=== PATIENT | male | born 1965 | race Caucasian/White ===

== ENCOUNTER 2018-10-07 12:06 | Observation (INO) ==
[2018-10-07] MEDS ORDERED: KEFZOL 2 GM/D5W 2 GM/50 ML IVPB ONE (12:43)
[2018-10-07] MEDS ORDERED: LR 1,000 ML ONE (12:43)
[2018-10-07] MEDS ORDERED: NORCO-10 ONE (14:38)
[2018-10-07] MEDS ORDERED: VALIUM ONE (14:38)
[2018-10-07] MEDS ORDERED: VERSED ONE (15:05)
[2018-10-07] MEDS ORDERED: XYLOCAINE 1% ONE (15:05)
[2018-10-07] MEDS ORDERED: QUELICIN (DOSE) ONE (15:05)
[2018-10-07] MEDS ORDERED: MARCAINE 0.5% PF ONE (15:05)
[2018-10-07] MEDS ORDERED: XYLOCAINE-MPF 2% ONE (15:05)
[2018-10-07] MEDS ORDERED: ROBINUL ONE (15:05)
[2018-10-07] MEDS ORDERED: FENTANYL ONE (15:06)
[2018-10-07] MEDS ORDERED: STERILE WATER INJ. ONE (15:06)
[2018-10-07] MEDS ORDERED: NORCURON ONE (15:06)
[2018-10-07] MEDS ORDERED: DIPRIVAN 1% ONE ×2 (15:07)
[2018-10-07] MEDS ORDERED: PRECEDEX ONE (15:13)
[2018-10-07] MEDS ORDERED: ZOFRAN ONE (15:33)
[2018-10-07] MEDS ORDERED: ZOFRAN IV PRN (17:32)
[2018-10-07] MEDS: MORPHINE IV PRN ×2 (18:36→21:56)
[2018-10-07 18:49] LABS: HEMOGLOBIN A1C 4.7 % (4.8-6.0)
--- NOTE | 2018-10-07 20:53 | OPERATIVE NOTE ---
PROCEDURE DATE: 10/07/2018 POSTOPERATIVE DIAGNOSES: 1. Right distal fibula fracture. 2. Right ankle dislocation. 3. Right deltoid tear. 4. Right posterior malleolar fracture. POSTOPERATIVE DIAGNOSES: 1. Right distal fibula fracture. 2. Right ankle dislocation. 3. Right deltoid tear. 4. Right posterior malleolar fracture. 5. Right ankle loose body. PROCEDURES: 1. Right open reduction and internal fixation of distal fibula. 2. Right open reduction and internal fixation of syndesmosis. 3. Right deltoid repair. 4. Right ankle arthrotomy with debridement of loose body. SURGEON: Lane Coles MD. POWER TRANSFORMER ASSEMBLER: EZE Costa, who was an integral part of the case, helping with all aspects of the case, helping to increase our operating room efficiency greatly. TOURNIQUET TIME: About an hour and a half. IMPLANTS: 1. Medline distal fibular locking plate and screws. 2. Biomet JuggerKnot suture anchors. DISPOSITION: To PACU, hemodynamically stable. INDICATION FOR PROCEDURE: Mr. Travis is a 53-year-old male who presented to the emergency department on 10/05/2018 after a fall. He was diagnosed with an ankle fracture, splinted and sent to clinic. He presented to clinic today with ankle dislocation, so discussed with him urgent surgical fixation. He expressed understanding and wished to proceed. DESCRIPTION OF PROCEDURE: Mr. Travis was identified in the preoperative holding area. Right ankle was marked as correct surgical site. He was then wheeled to the operating room and placed supine on the operating table. All bony prominences were well padded. He was induced under general anesthesia. LMA was placed. No thigh tourniquet was used. The right lower extremity was then prepped with chlorhexidine, gluconate scrub, and then ChloraPrep, and draped in a normal sterile fashion. Surgical pause was performed. We identified the correct patient, the correct side, and the correct procedure. Preoperative antibiotics were given. Esmarch was used to exsanguinate the right lower extremity, and Esmarch was used as the tourniquet at the level of the midcalf. I started with a lateral incision over the distal fibula. Dissection was carried down. There was a long oblique fracture of the fibula, and there was a lot of muscle that was interposed in there which looked to be some of the FHL muscle belly. Looking at fluoroscopic imaging, it looked like there may have been some loose body in the joint because the talus was a little bit tilted, so I ended up taking down the AITFL off the anterior aspect of the fibula, and was able to externally rotate the fibula and look inside the joint, and there were some loose bodies there. There was a lot of comminution at the distal fibula at the syndesmosis, and you could see the posterior malleolar fracture fragment as well which was really small, but the posterior tibiofibular ligament was attached to that piece. I then used a rongeur after we made our arthrotomy, and was able to debride out those loose bodies out of the ankle joint. After that, the ankle joint itself looked pretty good as much as I could see. I then debrided a little bit of the comminution of loose bone that was there, and then I was able to reduce the fibula really well. After that, I was able to get a bony reduction clamp on it. I did use a large tenaculum to help reduce my medial clear space widening at the fibula right where we needed it. I then used a lag screw proximally, where the larger fracture fragments were, and that lagged everything in together very nicely. I was then able to get a distal fibular locking plate on that was fairly long. I used nonlocking screws proximally and locking screws distally to hold everything together. There was some syndesmotic instability that was there, and so I used a hand reduction of the syndesmosis. I was looking right at the reduction as well on the anterior aspect of the syndesmosis to make sure my position was perfect, and then I placed two 4-0 screws across the fibula and into the tibia. We drilled all 4 cortices. That stabilized the syndesmosis and I performed ORIF of the tibia-fibula joint. After this, the ankle was fairly stable. I went over to the medial side and made an incision there. The deltoid was completely avulsed off the medial malleolus. There were some bony spurs off of the medial malleolus. I took those off with a rongeur. I then put 2 JuggerKnot suture anchors in to repair the deltoid down, and then reinforced that with 0 Vicryls. After this, the ankle was very stable. Final images were taken which showed we had a good ankle mortise view and good position of all our hardware. On the lateral view, we saw the perfect dome of the talus. The fibula looked to be in really good position there. I then repaired the anterior-inferior tibiofibular ligament with 0 Vicryl. I then used 0 Vicryl to cover the deep layer over the plate and 0 Vicryl for the deep layer on the medial wound, then 2-0 Vicryl on the subcutaneous tissue, and nylon on the skin. Adaptic, 4x4s, ABD, Sof-Rol, and posterior splint were applied. Tourniquet was let down. He had good capillary refill return to his toes. He was then awoken from general anesthesia, moved to his own bed, and taken to PACU in stable condition. Postoperatively, he will be nonweightbearing on the right lower extremity. We will admit him to Observation overnight, and more likely be able to discharge him in the morning. cc: Lane Coles MD
[2018-10-07] MEDS: KEFZOL 1 GM/D5W 1 GM/50 ML IVPB IV SCH (20:54)
[2018-10-07] MEDS: OXY IR PO PRN ×2 (20:54→23:32)
[2018-10-08] MEDS: MORPHINE IV PRN ×8 (00:27→17:08)
[2018-10-08] MEDS: OXY IR PO PRN ×6 (02:17→17:48)
[2018-10-08] MEDS: LOVENOX SUBQ SCH ×2 (04:51→05:56)
[2018-10-08] MEDS: KEFZOL 1 GM/D5W 1 GM/50 ML IVPB IV SCH ×2 (04:51→12:37)
[2018-10-08] MEDS ORDERED: PRILOSEC PO SCH (07:00)
[2018-10-08] MEDS ORDERED: SYNTHROID PO SCH (07:00)
[2018-10-08] MEDS: NEURONTIN PO PRN ×2 (08:04→14:26)
[2018-10-08] MEDS: CLEOCIN PO SCH ×2 (08:05→14:26)
[2018-10-08] MEDS ORDERED: CENTRUM SILVER PO SCH (09:00)
[2018-10-08] MEDS ORDERED: TOPAMAX PO SCH (09:00)
[2018-10-08] MEDS ORDERED: VITAMIN C PO SCH (09:00)
[2018-10-08 14:30] VITALS: BP 128/79
--- NOTE | 2018-10-08 18:22 | PROGRESS NOTE ---
DATE: 10/08/2018 SUBJECTIVE: Mr. Travis is lying in bed. He is doing fairly well overall. Morphine has not been working great for him, but the OxyIR is working pretty good. OBJECTIVE: On right lower extremity exam, his splint is clean, dry, and intact. He is able to move his toes and has good sensation to light touch to the toes and good capillary refill of the toes. ASSESSMENT: Status post open reduction and internal fixation of the ankle. PLAN: Mr. Travis will be discharged home today. He will be nonweightbearing, right lower extremity. He will be sent home with Percocet, and I will see him in a week in clinic. cc: Lane Coles MD
[2018-10-08] MEDS ORDERED: DESYREL PO SCH (21:00)
--- NOTE | 2018-10-09 05:19 | DISCHARGE SUMMARY ---
ADMISSION DATE: 10/07/2018 DISCHARGE DATE: 10/08/2018 PRINCIPAL PROCEDURE: Open reduction internal fixation, right ankle. DISPOSITION: Home. DISCHARGE MEDICATIONS: Percocet and aspirin. HOSPITAL COURSE: Mr. Travis is a 53-year-old male who was admitted to the hospital after his open reduction internal fixation of his right ankle. He did well, pain was fairly well controlled. He will be discharged home today. Follow with me in 1 week in clinic. cc: Lane Coles MD
== END 2018-10-08 18:03 | disposition home or self-care (01) ==
LOC: OR 12:06 → 4N 12:06
PROVIDERS: ADMIT Orthopaedic Surgery; ATTEND Orthopaedic Surgery
CPT/HCPCS: 76000; 83036; A9270; J0330; J0690; J1650; J2250; J2270; J2405; J3010; J7120; S0020

== ENCOUNTER 2019-01-01 05:44 | Inpatient (IN) ==
--- NOTE | 2019-01-01 06:25 | PROVIDER DOCUMENTATION ---
HPI-General Adult - General Chief Complaint: Extremity Pain Stated Complaint: POSS BLOOD CLOT IN LEFT LEG Time Seen by Provider: 01/01/19 06:03 Source: patient Allergies/Adverse Reactions: Patient Allergies Allergy/AdvReac Type Severity Reaction Status Date / Time naproxen Allergy Severe ANAPHYLAXIS Verified 01/01/19 05:55 ketorolac [From Toradol] Allergy HIVES Verified 01/01/19 05:55 meperidine [From Demerol] Allergy HIVES Verified 01/01/19 05:55 Home Medications: Home Medication List Medication Instructions Recorded Confirmed Last Taken Type Gabapentin 300 mg PO DAILY PRN PRN 07/03/18 11/26/18 10/07/18 04:00 History Omeprazole 40 mg PO DAILY 07/03/18 10/07/18 10/07/18 04:00 History Clindamycin [Cleocin] 300 mg PO Q6HR 10/05/18 10/07/18 10/07/18 07:00 History Topiramate 200 mg PO DAILY 10/05/18 10/07/18 10/07/18 04:00 History Trazodone [Desyrel] 50 mg PO QHS 10/05/18 10/07/18 10/06/18 19:30 History Hydrocodone/Acetaminophen [[place] 1 ea PO Q6H PRN PRN #12 tab 10/06/18 10/07/18 10/07/18 04:00 Rx 5-325 Tablet] Ascorbic Acid [Vitamin C] 600 mg PO DAILY 10/07/18 10/07/18 10/07/18 07:00 History Levothyroxine [Synthroid] 100 mcg PO DAILY 10/07/18 11/26/18 10/07/18 04:00 History Multivitamin [Multivitamins] 1 ea PO DAILY 10/07/18 10/07/18 10/07/18 04:00 History Aspirin [Ecotrin] 325 mg PO BID #60 tablet. 10/08/18 Unknown Rx Oxycodone HCl/Acetaminophen 1 ea PO Q4-6H PRN PRN #40 tab 10/08/18 Unknown Rx [Percocet 5-325 mg Tablet] Hydrocodone/APAP 5 mg/325 mg 1 ea PO Q6H PRN PRN #12 tab 11/09/18 Unknown Rx [[place]-5] Hydrocodone/APAP 5 mg/325 mg 1 ea PO Q6H PRN PRN #10 tab 11/26/18 Unknown Rx [[place]-5] Hydrocodone/Acetaminophen [[place] 1 - 2 ea PO Q6-8H PRN PRN #20 tab 12/11/18 Unk nown Rx 5-325 Tablet] - History of Present Illness -Gen Adult Nature of Presenting Problems: A 53 Y/O MALE WITH PRESENTS WITH C/O SWELLING AND PAIN IN HIS LEFT LEG. STARTED YESTERDAY AFTERNOON AND HAS BEEN WORSENING, WAS ABLE TO SLEEP ONLY 3 HOURS DUE TO PAIN. PER PT HAD SOME CENTRAL CHEST PAIN AND SOB YESTERDAY AROUND NOON. WAS IN THE CENTER OF THE CHEST, NOW RESOLVED. PER PT HIS L LEG WAS SWOLLEN 3 TIMES THEN WHAT IT IS NOW LAST NIGHT. PT WAS RECENTLY DX WITH DVT AND IS CURRENTLY ON XARALTO. Review of Systems - Adult - REVIEW OF SYSTEMS - ADULT Constitutional: reports: no symptoms reported Eyes: reports: no symptoms reported Ears, Nose, Mouth & Throat: reports: no symptoms reported Cardiovascular: reports: see HPI Respiratory: reports: see HPI Gastrointestinal: reports: no symptoms reported Genitourinary: reports: no symptoms reported Musculoskeletal: reports: see HPI Integumentary: reports: no symptoms reported Neurological: reports: no symptoms reported Psychiatric: reports: no symptoms reported Endocrine: reports: no symptoms reported Hematologic/Lymphatic: reports: no symptoms reported Allergic/Immunologic: reports: no symptoms reported Past History - Adult - PAST MEDICAL HISTORY-ADULT Review of Records: reports: Medications Reviewed Major Childhood Illnesses: reports: denies history Cardiovascular: reports: HTN Respiratory: reports: denies history, other (but uses a nebulizer for his wheezing) Gastrointestinal: reports: GERD, other (diverticulitis) Obstetrical/Gynecological: reports: denies history Genitourinary: reports: kidney stones Musculoskeletal: reports: arthritis, chronic pain Neurological: reports: denies history Endocrine/Immune: reports: Diabetes (diet controlled), thyroid disorder Other Conditions: reports: denies history - PRIOR SURGERIES/PROCEDURES Surgical/Procedure History: reports: appendectomy, colonoscopy, orthopedic (extremity) (bilat ankle crush injury at age 19, left shoulder Sx), other (cystoscopy) - IMMUNIZATION STATUS Childhood Immunizations: UTD, See Nurse Assessment Flu Vaccine: See Nurse Assessment - FAMILY HISTORY Family History: reviewed, not pertinent Physical Exam-General - PHYSICAL EXAM-ADULT Initial Vital Signs Reviewed: Yes - CONSTITUTIONAL General Appearance: appears well, alert, no apparent distress - EYES Eyes: PERRL/EOMI - HEAD, EARS, NOSE, MOUTH & THROAT HENMT: normocephalic/atraumatic, moist mucous membranes, normal ENT inspection - NECK Neck: full range of motion, supple - RESPIRATORY Respiratory: chest non-tender, lungs clear, normal breath sounds, no respiratory distress - CARDIOVASCULAR Cardiovascular: regular rate, rhythm, no murmur - GASTROINTESTINAL (ABDOMEN) Abdominal Exam: soft - MUSCULOSKELETAL Back Exam: no CVA tenderness Extremity: non-tender, pedal edema (B/L FEET 1=2+ [facility]) Peripheral Pulses: radial (R): 2+, radial (L): 2+ - SKIN Integumentary: normal turgor, warm/dry - NEUROLOGIC Neurologic: grossly normal - PSYCHIATRIC Psych/Mental Status: normal mood/affect, oriented x 3, anxious Progress - PLAN OF CARE/RESULTS Progress/Plan/Lab Results: Vital Signs - 8 hr 01/01/19 05:47 Temperature 97.3 F L Pulse Rate 66 Respiratory Rate 18 Blood Pressure 124/75 O2 Sat by Pulse Oximetry 96 Result Diagrams: 01/01/19 06:11 01/01/19 06:11 - CT/MRI 1 CT Study: Angiogram Impression: Abnormal (bilat PE, also has nodules to RUL) - ULTRASOUND (By Radiology) 1 US Study: Lower Ext (lo) Impression: Abnormal (low flow iliac, no flow to distal) - CONSULTS/PCP/HOSPITALIST Notification #1 *Consult/PCP/Hospitalist*: Summer Time Discussed: 11:01 Consult Disposition: Will see in ED - CHANGE OF SHIFT REPORT (ED Provider) 1 Report Given and Care Transferred to:: DR MCKINNEY Time of Transfer: 07:00 Items Pending: Labs, Ultrasound Results Departure - Departure Date of Disposition Decision: 01/01/19 Time of Disposition Decision: 10:59 DIAGNOSIS: Bilateral pulmonary embolism Disposition: ADMITTED INPATIENT 09 Certified Medical Emergency: Emergent Condition: Fair Referrals and Follow-Ups: Oumar Travis Jr, MD [Primary Care Provider] - - Critical Care Note This patient required my direct & personal management of CC.: No Attestation - Physician/ STEPH Attestation Patient care was provided by Advanced Practice Provider:: No The physician spent face to face time with patient:: Yes Advanced Practice Provider documentation review:: Supervising physician onsite and consulted in the evaluation and care of this patient. The physician did have a face to face encounter with the patient.
[2019-01-01 06:32] LABS: BASO# 0.06 X1000 (0.0-0.2); BASO% 0.9 % (0.0-0.8); EOS# 0.42 X1000 (0.0-0.7); EOS% 6.1 % (0.0-10.0); HEMATOCRIT 45.9 % (42.0-52.0); HEMOGLOBIN 15.1 g/dL (14.0-18.0); IMM GRAN# 0.02 X1000 (0.0-0.04); IMM GRAN% 0.3 % (0.0-0.5); LYMPH# 2.34 X1000 (1.2-3.4); MCH 31.9 PG (27-31); MCHC 32.9 g/dL (33-37); MCV 96.8 FL (81-99); MONO# 0.45 X1000 (0.11-0.59); MONO% 6.5 % (1.7-9.3); MPV 10.1 FL (7.4-10.4); NEUT% 52.2 % (42.2-75.2); PLT 242 X1000 (130-400); RBC 4.74 XMIL (4.7-6.1); RDW 14.8 % (11.5-14.5); WBC 6.89 X1000 (4.8-10.8)
[2019-01-01 06:50] LABS: AGAP 11; ALB/GLOB RATIO 1.1; ALBUMIN 3.5 g/dL (3.5-5.0); ALKALINE PHOSPHATASE 80 U/L (32-122); BUN 14 mg/dL (8-22); CALCIUM 8.3 mg/dL (8.8-10.2); CHLORIDE 106 mmol/L (98-107); CK PROFILE 80 U/L (24-204); COSMO 279; ESTIMATED GFR > 60; GLUCOSE 83 mg/dL (70-104); GOT 24 U/L (10-34); GPT 10 U/L (10-44); POTASSIUM 4.1 mmol/L (3.5-5.1); SODIUM 140 mmol/L (136-145); TCO2 23 mmol/L (25-35); TOTAL BILIRUBIN 0.37 mg/dL (0.20-1.00); TOTAL PROTEIN 6.6 g/dL (6.3-8.3)
[2019-01-01] MEDS ORDERED: MORPHINE IM ONE (08:35)
--- NOTE | 2019-01-01 08:52 | Diag Imaging Result Doc PS360 ---
EXAM: CHEST-1 VIEW 01/01/2019 HISTORY: cp TECHNIQUE: AP portable at 0626 COMMENT: The heart size and primary vascularity are within normal limits. There is mildly increased interstitial markings more so than on the previous study of 04/29/2017. IMPRESSION: Questionable interstitial pulmonary edema. Electronically signed by Rick Orlando 01/01/2019 8:50 AM
[2019-01-01] MEDS ORDERED: MORPHINE IV ONE (09:42)
[2019-01-01] MEDS ORDERED: HEPARIN IV ONE ×2 (10:57→11:15)
[2019-01-01] MEDS ORDERED: HEPARIN IV PRN (10:57)
--- NOTE | 2019-01-01 10:57 | Diag Imaging Result Doc PS360 ---
EXAM: CT ANGIOGRM PULMONARY ARTERIES 01/01/2019 HISTORY: difficulty breathing, left arm swollen TECHNIQUE: This exam was performed using automated exposure control, adjustment of mA or kV according to patient size, and/or use of iterative reconstruction technique. COMMENT: 3-D MIPS were performed. The current examination is compared with the previous study of 10/28/2014. There is an embolus in the right main pulmonary artery and filling defects are also present in the interlobar artery on the right and in posterior lower lobe branches in the left side. The aorta is not distended and there is no evidence of dissection. There is a hiatal hernia. There is pleural thickening or loculated fluid laterally at the junction of the minor and major fissure on the right. This was not present on the previous study. There is a pleural-based noncalcified nodule present posterior laterally in the right upper lobe on image 47 measuring 15 mm in diameter. This was not demonstrated on the previous study. There are number of smaller pleural-based nodules posteriorly in the right upper lobe which were also not demonstrated on the previous study. There are some subpleural blebs particularly in the right apex. There is no evidence of significant adenopathy. There is contrast in the left subclavian and innominate vein (contrast was injected in the left arm) and no evidence of thrombosis is demonstrated. The adrenal glands are not enlarged. No acute abnormalities are demonstrated in the visualized portion of the abdomen. There is a partially calcified exophytic cyst in the upper pole of the right kidney which has not changed since 10/25/2017. IMPRESSION: 1. Pulmonary emboli as described. 2. New right upper lobe pulmonary nodules. The findings were discussed with Luis New MD at 01/01/2019 10:55 AM. Electronically signed by Rick Orlando 01/01/2019 10:55 AM
[2019-01-01] MEDS ORDERED: HEPARIN 25,000 UNITS/D5W 25,000 UNIT/250 ML IV.SOLN IV SCH (11:00)
[2019-01-01 11:51] LABS: INR 1.36; PROTIME 17.8 Seconds (11.0-16.0)
[2019-01-01] MEDS ORDERED: ZOFRAN IV PRN (12:09)
[2019-01-01] MEDS ORDERED: TYLENOL PO PRN (12:09)
[2019-01-01] MEDS: MORPHINE IV PRN ×2 (12:54→17:10)
--- NOTE | 2019-01-01 13:24 | HISTORY AND PHYSICAL ---
CHIEF COMPLAINT: Left leg pain and chest pain. HISTORY OF PRESENT ILLNESS: Mr. Travis is a 53-year-old male who presents to the ER today complaining of left leg pain and chest pain that started about 2 days ago. The patient states that on 12/11 he was diagnosed with a left leg DVT and was started on Xarelto. The patient states he has been taking his Xarelto as ordered. About 2 days ago, his left leg pain has steadily become a lot worse. He also started having excruciating chest pain. The patient states that he had a meniscus surgery on 12/02 and right ankle surgery recently. The patient does have notable edema to the left leg and also right ankle region. The patient denies any nausea or vomiting. He states that he has had no problem with his bowel or bladder. The patient states he has having pain at this time an 8 out of 10 to the left leg and to the chest region when he takes a deep breath. Pulmonary arteriogram in the ER was performed and showed pulmonary emboli in the right main pulmonary artery and filling defects are also present in the interlobar artery on the right and posterior left lower lobe branches on the left side. PAST MEDICAL HISTORY: Bipolar disorder, hypothyroidism, kidney stones, and tobacco dependence. PAST SURGICAL HISTORY: 1. Meniscus surgery on 12/02/2018. 2. ORIF of the right ankle 3. Gastric sleeve surgery done 02/03/2018. 4. Left shoulder surgery in 1986. 5. The patient states he has had multiple cystoscopies for kidney stone removal. FAMILY HISTORY: Mother positive for COPD. Father positive for heart problems and bipolar. Both parents are still living. SOCIAL HISTORY: The patient lives here in [place]. He is disabled. He admits to smoking half a pack of cigarettes per day, and admits to drinking alcohol every other day a small amount. He states that he smokes marijuana 2 times a day every day. ALLERGIES: Naproxen, Toradol and meperidine. MEDICATIONS: 1. Aspirin 325 mg p.o. daily. 2. Gabapentin 300 mg p.o. daily. 3. Levothyroxine 100 mcg p.o. daily. 4. Multivitamin 1 tablet daily. 5. Omeprazole 40 mg p.o. daily. 6. Topiramate 200 mg p.o. daily. 7. Trazodone 50 mg p.o. daily. 8. Ascorbic Acid 1000 mg p.o. daily. 9. Xarelto 15 mg p.o. daily. LABORATORY AND DIAGNOSTICS: White blood cell count 6.89, hemoglobin 15.1, hematocrit 45.9, and platelet count 242,000. PT 17.8, INR 1.36, and PTT 31.0. D-dimer 1.35. Sodium 140, potassium 4.1, chloride 106, carbon dioxide 23, BUN 14, and creatinine 1. GFR greater than 60, glucose 83, calcium 8.3, bilirubin 0.37, AST 24, ALT 10, alkaline phosphatase 80, creatine kinase 80. Troponin less than 0.01. Pulmonary arteriogram done on 01/01/2019 shows pulmonary emboli in the right main pulmonary artery, and filling defects are also present in the anterior lobar artery on the right and in the posterior lower lobe branches on the left side. This shows new right upper lobe pulmonary nodules. Chest x-ray shows interstitial pulmonary edema. REVIEW OF SYSTEMS: A 12 point review of systems was obtained. And all are negative except what is stated above in HPI. PHYSICAL EXAMINATION: VITAL SIGNS: Temperature 97.3, pulse rate 66, respiratory rate 18, blood pressure 113/77, and O2 saturation 96% on room air. GENERAL: This is a well-nourished, well-developed male 53-year-old male in somewhat acute distress complaining of pain to the leg and the chest area. HEENT: Atraumatic and normocephalic. Pupils equal, round, and reactive to light. Mucous membranes are moist. No dentition noted. NECK: Supple. No lymphadenopathy. Trachea is midline. No JVD. CV: Regular rate and rhythm. No murmurs, gallops, or rubs appreciated. S1, S2 noted. RESPIRATORY: Lung sounds are clear with equal chest excursion. Respirations are nonlabored with no accessory muscle usage. GI: Abdomen is soft, nondistended, and nontender. Bowel sounds are present x4. NEUROLOGIC: The patient is awake, alert, and oriented x4. Follows all commands. Cranial nerves intact. MUSCULOSKELETAL: Full distal strength noted. No abnormalities. No deformities. EXTREMITIES: No clubbing or cyanosis. DP and PT pulses are palpable and +2. Left lower leg edema noted. +2 right ankle edema noted. SKIN: Warm and dry. No rashes. A bruise noted to the right ankle. There is a new scar noted to the left knee region and the right angle region. No diaphoresis. IMPRESSION: 1. Pulmonary embolus. 2. Left leg DVT. 3. Bipolar disorder. 4. Thyroid disorder. 5. Tobacco dependence. PLAN: We will admit this patient to the [facility] unit. We will place the patient on surveillance monitor. Place this patient on Lovenox 1mg/kg BID. Start this patient on a regular diet. Give [place] and morphine p.r.n. for pain management. Keep the patient on strict bedrest. Repeat labs and chest x-ray in the morning. Patient seen and examined by me face to face, all the laboratory, vitals signs and images were reviewed, patient presented to the Emergency Department with chest pain, and left leg swelling and severe pain, he was recently diagnosed with DVT in that area and placed on Xarelto, as per the patient he has been doing " hard work on his backyard " and started felling left leg pain and chest pain, CTA showed PE, apparently he has been on Xarelto for a little more than 20 days, I will stop Xarelto and start Lovenox, and likely I will send this patient home with Eliquis, he his bradycardic but as per the patient this is his basal rhythm, I will suggest a follow up with Cardiology as an outpatient, I agree with the QUILL MACHINE OPERATOR's assessment and plan, Joseph Harkins MD. Dictated by EZE Barba for Joseph Pak MD cc: MD Dr. Thaddeus Linn
[2019-01-01] MEDS: NORCO-7.5 PO PRN ×2 (14:46→19:50)
[2019-01-01] MEDS: LOVENOX SUBQ SCH (17:10)
--- NOTE | 2019-01-01 18:02 | Extremity Venous Study ---
PROCEDURE NAME: Venous U/S Left Leg - 01/01/2019 Mr. Travis has edema and pain in the left lower extremity. He has a history of a DVT diagnosed on 12/11/2018. He has been on anticoagulants since that time, and is here for followup. Left lower extremity is imaged. The common femoral, superficial femoral, deep femoral, popliteal, posterior tibial, peroneal, and greater saphenous are imaged. The right common femoral vein is imaged for comparison purposes. There is no flow in the superficial femoral, deep femoral, popliteal, posterior tibial, and peroneal veins. Some clot in the left common femoral vein. There is some flow into the common femoral from the greater saphenous vein. The right common femoral appears normal. INTERPRETATION: Deep venous thrombosis in the common femoral, deep femoral, superficial femoral, popliteal, posterior tibial, and peroneal veins. This has not changed significantly compared to study of 12/11/2018. cc: Karthik Hernadez MD
--- NOTE | 2019-01-01 18:10 | ECHO REPORT ---
ORDER DATE: 01/01/2019 INTERPRETING PHYSICIAN: Kwan Robertson MD This is a patient of the Emergency Room Department. INDICATION: Pulmonary embolus. DESCRIPTION: Left ventricle end diastole: 5.7 cm. Left ventricle end systole: 3.6 cm. Posterior wall: 1.1 cm. Interventricular septum: 1.1 cm. Left atrium: 5.0 cm. SUMMARY OF 2-DIMENSIONAL IMAGIN. Left ventricular function is normal. Ejection fraction is estimated at 63%. The chamber is mildly enlarged. 2. The right ventricle appears to be normal. 3. The aortic valve looks normal. Color flow mapping is unremarkable. The aortic valve is free of calcification. 4. The pulmonic valve looks normal. Color flow mapping is unremarkable. 5. The mitral valve looks normal. Color flow mapping is unremarkable. 6. Pulsed wave Doppler of mitral inflow shows normal E/A ratio. 7. Tissue Doppler of septal and lateral mitral annulus averages 10 cm. 8. There is no diastolic dysfunction. 9. The left atrium appears to be mildly prominent. 10.The tricuspid valve looks normal. Color flow mapping is unremarkable. 11.Pulmonary artery pressure appears to be normal. 12.Optison was injected to optimize visualization of the endocardium. There is really no more to be said about this study with Optison. SUMMARY: In summary, this echocardiographic study appears to be: 1. Grossly within normal range. 2. The left ventricle is normal in function and probably mildly or borderline enlarged. 3. The left atrium may be borderline enlarged. 4. Aortic, mitral, pulmonic, and tricuspid valves appear to be normal. The tricuspid valve was suboptimally visualized. 5. There is no definite indication of pulmonary hypertension. Clinical correlation is recommended. cc: Kwan Robertson MD
[2019-01-01] MEDS ORDERED: DESYREL PO SCH (21:00)
[2019-01-01] MEDS ORDERED: CELEXA PO SCH (21:00)
[2019-01-01] MEDS: TRILEPTAL PO SCH (21:23)
[2019-01-01] MEDS: NICODERM PATCH TD SCH (21:23)
[2019-01-02] MEDS: MORPHINE IV PRN ×2 (00:42→05:44)
[2019-01-02] MEDS: NORCO-7.5 PO PRN ×2 (02:44→08:33)
[2019-01-02] MEDS: LOVENOX SUBQ SCH (06:32)
[2019-01-02 06:35] LABS: BASO# 0.03 X1000 (0.0-0.2); BASO% 0.5 % (0.0-0.8); EOS# 0.33 X1000 (0.0-0.7); EOS% 5.5 % (0.0-10.0); HEMATOCRIT 45.7 % (42.0-52.0); HEMOGLOBIN 15.2 g/dL (14.0-18.0); LYMPH# 1.81 X1000 (1.2-3.4); MCH 32.1 PG (27-31); MCHC 33.3 g/dL (33-37); MCV 96.4 FL (81-99); MONO# 0.43 X1000 (0.11-0.59); MONO% 7.1 % (1.7-9.3); MPV 10.4 FL (7.4-10.4); NEUT# 3.44 X1000 (1.4-6.5); NEUT% 56.9 % (42.2-75.2); PLT 228 X1000 (130-400); RBC 4.74 XMIL (4.7-6.1); RDW 14.7 % (11.5-14.5); WBC 6.04 X1000 (4.8-10.8)
[2019-01-02 06:58] LABS: AGAP 7; BUN 10 mg/dL (8-22); CALCIUM 8.4 mg/dL (8.8-10.2); CHLORIDE 105 mmol/L (98-107); CK PROFILE 61 U/L (24-204); COSMO 280; CREATININE 0.8 mg/dL (0.7-1.2); ESTIMATED GFR > 60; GLUCOSE 87 mg/dL (70-104); MAGNESIUM 2.3 mg/dL (1.5-2.7); POTASSIUM 3.7 mmol/L (3.5-5.1); SODIUM 141 mmol/L (136-145); TCO2 29 mmol/L (25-35)
[2019-01-02] MEDS ORDERED: PRILOSEC PO SCH (07:00)
[2019-01-02] MEDS ORDERED: SYNTHROID PO SCH (07:00)
--- NOTE | 2019-01-02 07:16 | Diag Imaging Result Doc PS360 ---
EXAM: CHEST-PORTABLE 01/02/2019 HISTORY: Pulmonary Embolus TECHNIQUE: AP portable at 0602 COMMENT: The inspiration is suboptimal. Considering the degree of inspiration there has been no significant change since 01/01/2019. IMPRESSION: Stable chest. Electronically signed by Rick Orlando 01/02/2019 7:14 AM
[2019-01-02 08:17] VITALS: BP 132/79
[2019-01-02] MEDS: TRILEPTAL PO SCH (08:33)
[2019-01-02] MEDS: NICODERM PATCH TD SCH (08:34)
[2019-01-02] MEDS ORDERED: THERA M PLUS PO SCH (09:00)
[2019-01-02] MEDS ORDERED: FLOMAX PO SCH (09:00)
[2019-01-02] MEDS ORDERED: TOPAMAX PO SCH (09:00)
[2019-01-02] MEDS ORDERED: NEURONTIN PO SCH (09:00)
[2019-01-02] MEDS ORDERED: ELIQUIS PO SCH (09:00)
[2019-01-02] MEDS ORDERED: VITAMIN C PO SCH (09:00)
--- NOTE | 2019-01-02 15:39 | DISCHARGE SUMMARY ---
ADMISSION DATE: 01/01/2019 DISCHARGE DATE: 01/02/2019 PRIMARY CARE: Dr. Oumar Travis. ADMITTING DIAGNOSES: 1. Pulmonary embolus. 2. Left leg DVT. 3. Bipolar disorder. 4. Thyroid disorder. 5. Tobacco dependence. DISCHARGE DIAGNOSIS: 1. Pulmonary embolus. 2. Left leg DVT. 3. Bipolar disorder. 4. Thyroid disorder. 5. Tobacco dependence. 6. Asymptomatic bradycardia PROCEDURES AND FINDINGS: Echocardiogram performed on 01/01/2019 showed a EF of 63% with the left ventricle being borderline enlarged, the left atrium may also be borderline enlarged. Venous ultrasound of the left leg was performed on 01/01/2019 showed DVT in the common femoral, deep femoral, superficial femoral, popliteal, posterior tibial, and peroneal veins which was unchanged from 12/11/2018. CT angiogram of the pulmonary arteries was performed on 01/01/2019 and showed an embolus in the right main pulmonary artery and filling defects were also present in the anterior labral artery on the right and posterior lower left branches on the left side. It also showed a new right upper lobe pulmonary nodule. Chest x-ray was performed on 01/01/2019 and showed questionable pulmonary edema, and chest x-ray on 01/02/2019 showed a stable chest. HOSPITAL COURSE: Mr. Travis is a 53-year-old male who presents to the ER complaining of left leg pain and chest pain that started 2 days prior. Patient states that on 12/11/2018, he was diagnosed with a left leg DVT and started on Xarelto. He noticed about 2 days prior to being admitted on 01/01/2019, that the pain had steadily become worse in his left leg and he started having some chest pain. CT angiogram of the pulmonary arteries was performed on 01/01/2019 and showed an embolus in the right main pulmonary artery and filling defects were also present in the anterior labral artery on the right and posterior lower left branches on the left side The patient was admitted to the [facility] unit and was started on Lovenox 1mg/kg b.i.d. The patient was treated for his pain with p.r.n. medications. Venous Doppler studies were performed. Echocardiogram was ordered. Repeat labs and chest x-ray obtained. The patient's pain has been improving. The patient is being sent home on Eliquis today and p.r.n. pain medication. DISCHARGE INSTRUCTIONS: The patient is to follow up with Dr. Mark in 2 to 3 weeks for asymptomatic bradycardia, Dr. Jewels Nur in 1 to 2 weeks for hematology workup and PE on Xarelto, and Dr. Travis in 1 to 2 weeks. The patient is being discharged with home with self care. LAB DATA: White blood cell count at 6.04, hemoglobin 15.2, hematocrit 45.7, platelet count 228,000, PTT today is 31.6. Sodium 141, potassium 3.7, carbon dioxide 29, BUN 10, creatinine is 0.8, GFR is greater than 60. Calcium is 8.4. Creatine kinase is 61. Troponins are less than 0.01. TSH is 4.18. DISCHARGE MEDICATIONS: Citalopram 40 mg p.o. at bedtime, Desyrel 50 mg p.o. at bedtime, Flomax 0.4 mg p.o. at bedtime, calcium carbonate 600 mg p.o. daily. Flexeril 10 mg p.o. p.r.n. pain. Gabapentin 300 mg p.o. daily. Omeprazole 40 mg p.o. daily. Oxcarbazepine 600 mg p.o. b.i.d., Synthroid 100 mcg p.o. daily. Topiramate 200 mg p.o. daily, vitamin D3 38321 units p.o. daily, Eliquis 10 mg take 2 tablets twice a day for 7 days and 5 mg 1 tablet twice a day, oxycodone 10 mg p.o. q. 6 hours p.r.n. pain. Thera M Plus vitamins 1 tablet p.o. daily. Ascorbic acid 500 mg p.o. daily. DC Diet: Resume diet as tolerated. DC Activity: Resume activity as tolerated. DISPOSITION AND DC INSTRUCTIONS: DC home to self-care. Patient to follow up with Dr. Mark in 2 to 3 weeks, Dr. Jewels Prakash in 1 to 2 weeks, Dr. Oumar Travis in 1 to 2 weeks. Dictated by EZE Barba for Joseph Pak MD cc: MD Eric Linn MD Joel A. Powell, MD [facility]
--- NOTE | 2019-01-05 21:55 | EKG Report ---
Test Performed on : 01/02/2019 06:43:37 AM Test Reason : Bradycardia Blood Pressure : / mmHG Vent. Rate : 054 BPM Atrial Rate : 054 BPM P-R Int : 168 ms QRS Dur : 086 ms QT Int : 444 ms P-R-T Axes : 022 021 039 degrees QTc Int : 421 ms Sinus bradycardia. Otherwise normal ECG When compared with ECG of 11-DEC-2018 09:18, (Unconfirmed) Criteria for Septal infarct are no longer present Confirmed by Graham Conte MD ([id number]) on 01/05/2019 9:56:02 PM
== END 2019-01-02 10:31 | disposition home or self-care (01) | DRG 300 ==
LOC: ED 05:44 → EDIPHOLD 12:35 → 3S 15:16
PROVIDERS: ATTEND Internal Medicine
CPT/HCPCS: 71010; 71045; 71275; 80048; 80053; 82550; 83735; 84443; 84484; 85025; 85379; 85610; 85730; 93005; 93010; 93306; 93971; 96372; 96374; 96375; 96376; 99285; A9270; C8929; J1644; J1650; J2270; Q9957; Q9967

== ENCOUNTER 2019-05-04 00:38 | Observation (INO) ==
[2019-05-04] MEDS ORDERED: ZOFRAN IV ONE (01:21)
[2019-05-04] MEDS ORDERED: MORPHINE IV ONE ×2 (01:21→04:42)
[2019-05-04] MEDS ORDERED: NS 1,000 ML IV ONE (01:21)
[2019-05-04 02:02] LABS: URINE SOURCE CLEAN CATCH
[2019-05-04 02:13] LABS: BILIRUBIN URINE NEGATIVE (NEGATIVE); BLOOD URINE NEGATIVE (NEGATIVE); COLOR YELLOW; GLUCOSE URINE NEGATIVE (NEGATIVE); KETONE URINE NEGATIVE (NEGATIVE); LEUKOCYTES URINE NEGATIVE (NEGATIVE); NITRITE URINE NEGATIVE (NEGATIVE); PROTEIN URINE TRACE mg/dL (NEGATIVE); SP GRAVITY URINE 1.015; TURBIDITY URINE HAZY (CLEAR); UROBILINOGEN URINE 2 mg/dL (NORMAL)
[2019-05-04 02:14] LABS: UR EPITHELIAL CELLS <10 /HPF (<10); URINE BACTERIA NEGATIVE /HPF; URINE RBC <10 /HPF (<10); URINE WBC <10 /HPF (<10)
[2019-05-04 02:48] LABS: AGAP 13; ALB/GLOB RATIO 1.3; ALBUMIN 3.5 g/dL (3.5-5.0); ALKALINE PHOSPHATASE 81 U/L (32-122); BUN 9 mg/dL (8-22); CALCIUM 8.1 mg/dL (8.8-10.2); CHLORIDE 108 mmol/L (98-107); COSMO 281; CREATININE 0.9 mg/dL (0.7-1.2); ESTIMATED GFR > 60; GLUCOSE 84 mg/dL (70-104); GOT 33 U/L (10-34); GPT 18 U/L (10-44); LIPASE 37 U/L (13-60); MAGNESIUM 2.1 mg/dL (1.5-2.7); POTASSIUM 4.3 mmol/L (3.5-5.1); SODIUM 142 mmol/L (136-145); TCO2 21 mmol/L (25-35); TOTAL BILIRUBIN 0.41 mg/dL (0.20-1.00); TOTAL PROTEIN 6.2 g/dL (6.3-8.3)
[2019-05-04 02:48] LABS: UR AMPHETAMINES QUAL NONE DETECTED (NONE DETECT); UR BARBITUATES QUAL NONE DETECTED (NONE DETECT); UR BENZODIAZEPIN QUAL NONE DETECTED (NONE DETECT); UR CANNABINOIDS QUAL PRESUMPTIVE POSITIVE (NONE DETECT); UR COCAINE QUAL NONE DETECTED (NONE DETECT); UR METHADONE QUAL NONE DETECTED (NONE DETECT); UR OPIATES QUAL NONE DETECTED (NONE DETECT); UR OXYCODONE QUAL NONE DETECTED (NONE DETECT); UR PCP QUAL NONE DETECTED (NONE DETECT)
[2019-05-04 02:55] LABS: BASO# 0.06 X1000 (0.0-0.2); EOS# 0.24 X1000 (0.0-0.7); HEMATOCRIT 38.1 % (42.0-52.0); HEMOGLOBIN 12.6 g/dL (14.0-18.0); LYMPH# 2.48 X1000 (1.2-3.4); LYMPH% 40.9 % (20.5-51.1); MCH 33.5 PG (27-31); MCHC 33.1 g/dL (33-37); MCV 101.3 FL (81-99); MONO# 0.41 X1000 (0.11-0.59); MONO% 6.8 % (1.7-9.3); MPV 10.3 FL (7.4-10.4); NEUT# 2.88 X1000 (1.4-6.5); NEUT% 47.3 % (42.2-75.2); PLT 281 X1000 (130-400); RBC 3.76 XMIL (4.7-6.1); WBC 6.07 X1000 (4.8-10.8)
[2019-05-04 03:29] LABS: BE 0.1 mmoll (-2.0-2.0); BLOOD TYPE VENOUS; HCO3-(ACT) 24.9 mmoll (22-27); PCO2(98.6) 23 mmHg (40-60); PO2(98.6) 110 mmHg (30-55); SAMPLE BLOOD; SAO2 99.7 % (40.0-85.0); pH(98.6) 7.57 (7.32-7.43)
--- NOTE | 2019-05-04 05:29 | HISTORY AND PHYSICAL ---
PRIMARY CARE PHYSICIAN: Dr. Oumar Travis MD CHIEF COMPLAINT: Abdominal pain. HISTORY OF PRESENTING ILLNESS: A 53-year-old male with a history of DVT, PE, COPD, and hypothyroidism who had presented to the emergency department with several days history of having worsening abdominal pain. Patient states over the past day or so it was cramping, and he could not keep anything down. He was evaluated in the emergency department. He had imaging done which did show the possibility of cholecystitis and colitis. Due to his presenting symptoms, it was thought that we will place him for observation for further evaluation and management. At the time of my examination, patient denied any headache, fever, chills, chest pain, shortness of breath or any weight changes, but complained of abdominal pain. PAST MEDICAL HISTORY: Includes DVT, COPD, hypothyroidism, and bipolar disorder. PAST SURGICAL HISTORY: Right wrist cast, left knee surgery, right ankle surgery, appendectomy, and gastric sleeve. ALLERGIES: Acetaminophen, naproxen, Demerol, oxycodone and Toradol. CURRENT MEDICATIONS: He does not recall, and nursing staff will reconcile. SOCIAL HISTORY: Twenty pack years history of smoking. Admits to social alcohol use. Uses marijuana occasionally. FAMILY HISTORY: Positive for coronary disease in father. REVIEW OF SYSTEMS: Fourteen point review of system as listed in HPI. Other systems negative. PHYSICAL EXAMINATION: GENERAL: Cooperative friendly male. He is resting more comfortably now. VITAL SIGNS: Temperature 97.6 degrees, pulse 62, respirations 20, and blood pressure 143/98. HEENT: Atraumatic, normocephalic. Extraocular movements intact. PERRLA. NECK: No masses. CHEST: Clear to auscultation. CARDIOVASCULAR: Regular rate and rhythm. ABDOMEN: Soft. Diffuse tenderness. EXTREMITIES: No edema. NEUROLOGIC: He is awake, alert, and oriented x3. : No bladder distention. SKIN: Warm. LABORATORIES AND STUDIES: WBC 6.07, hemoglobin 12.6, hematocrit 38.1 and platelets 281,000. Sodium 142, potassium 4.3, chloride 108, CO2 21, BUN 9, creatinine 0.9 and glucose is 84. ASSESSMENT: A 53-year-old male with a history of DVT, COPD, PE, and hypothyroidism, who had presented to emergency department with several days history of having abdominal pain. He had imaging done which did show the possibility of acute cholecystitis and colitis. Due to his presenting symptoms, we will place him for observation for further evaluation and management. 1. Abdominal pain. 2. Possible colitis. 3. Possible cholecystitis. 4. History of DVT and PE. 5. Chronic obstructive pulmonary disease. 6. Ongoing tobacco abuse. PLAN: 1. We will admit patient to medical floor with telemetry. 2. Keep patient NPO. Check an abdominal ultrasound. 3. We will consult General Surgery. 4. We will put patient on IV Flagyl, and continue with IV fluid hydration. 5. We will continue with his anticoagulation for now. 6. Continue with DuoNeb's p.r.n. 7. I counseled patient on smoking cessation. 8. The patient is already on anticoagulation. This will suffice for DVT prophylaxis. 9. We will continue to follow and reassess. Make further recommendations based on patient's clinical course. cc: Lupillo Stevenson MD
[2019-05-04] MEDS ORDERED: SODIUM CHLORIDE 0.9% INJ ONE (06:38)
[2019-05-04] MEDS ORDERED: PROTONIX IV ONE (06:45)
[2019-05-04] MEDS ORDERED: ZOFRAN IV PRN (07:10)
--- NOTE | 2019-05-04 07:16 | EKG Report ---
Test Performed on : 05/04/2019 05:47:12 AM Test Reason : chest pain Blood Pressure : / mmHG Vent. Rate : 048 BPM Atrial Rate : 048 BPM P-R Int : 154 ms QRS Dur : 076 ms QT Int : 480 ms P-R-T Axes : 003 010 -10 degrees QTc Int : 428 ms Sinus bradycardia. Otherwise normal ECG When compared with ECG of 17-FEB-2019 01:58, No significant change was found Unconfirmed Result
[2019-05-04] MEDS: NS 1,000 ML IV SCH ×3 (07:28→21:58)
[2019-05-04] MEDS ORDERED: SYNTHROID PO SCH (07:30)
[2019-05-04] MEDS ORDERED: PRILOSEC PO SCH (07:30)
[2019-05-04] MEDS: MORPHINE IV PRN ×3 (07:45→21:49)
[2019-05-04] MEDS: FLAGYL 500 MG/NS 500 MG/100 ML IVPB IV SCH ×2 (07:46→20:11)
--- NOTE | 2019-05-04 07:47 | Diag Imaging Result Doc PS360 ---
EXAM: CT ABD/PELVIS W/IV CONT ONLY INDICATION: low abd pain TECHNIQUE: This exam was performed using automated exposure control, adjustment of mA or kV according to patient size, and/or use of iterative reconstruction technique. COMPARISON: 10/25/2017 FINDINGS: There is pericholecystic edema suggesting possible acute cholecystitis. Please correlate clinically. There is no evidence of significant biliary dilatation. The liver, spleen, pancreas, and adrenal glands are essentially unremarkable. There are several small renal cysts bilaterally. One at the upper pole of the right kidney is mildly complex containing focal calcium at its periphery. There is no hydronephrosis. The urinary bladder is nondistended and is essentially unremarkable, otherwise. The appendix is not identified. There is no secondary sign of appendicitis. There is stable mild fatty infiltration of the colonic wall. This causing mild colonic wall thickening. No pericolic inflammatory changes are identified. There is mild uncomplicated diverticulosis coli. There is no evidence of bowel obstruction. There has been an interval gastric sleeve procedure. No free abdominal gas or significant free fluid is appreciated. IMPRESSION: 1.Pericholecystic edema suggesting possible acute cholecystitis. Please correlate clinically. 2.Somewhat thickened colonic wall. However, this appears to be due to fatty infiltration. No pericolonic inflammatory changes are appreciated. 3.Multiple renal cysts with one at the upper pole the right kidney being mildly complex exhibiting focal peripheral calcification. 4.Other incidental/nonacute findings detailed above. Electronically signed by Sourav Zarate 05/04/2019 7:45 AM
[2019-05-04] MEDS ORDERED: TRILEPTAL PO SCH (09:00)
[2019-05-04] MEDS ORDERED: ELIQUIS PO SCH (09:00)
--- NOTE | 2019-05-04 11:42 | Diag Imaging Result Doc PS360 ---
US ABDOMEN-COMPLETE - 05/04/2019 INDICATION: abdominal pain COMPARISON: CT from 3:00 AM FINDINGS: There is mild nonspecific gallbladder wall thickening. No gallbladder distention or drainable fluid collections. No shadowing gallstones. No biliary dilation. Common bile duct measures 5 mm. The liver, and pancreas are normal. The spleen is enlarged. Spleen size is 14.3 x 4.4 cm. There are small benign bilateral renal cysts. These measure 2.4 cm on the right and 1 cm on the left. Otherwise both kidneys are normal. Aorta, IVC, and main portal vein are patent. IMPRESSION: 1. Moderate gallbladder wall thickening of uncertain etiology. No distention or gallstones. Consider further evaluation with a HIDA scan. 2. Mild splenomegaly. Electronically signed by Oumar Hitchcock 05/04/2019 11:40 AM
[2019-05-04] MEDS ORDERED: DILAUDID IV ONE (12:08)
[2019-05-04] MEDS ORDERED: PROTONIX IV SCH (12:15)
[2019-05-04] MEDS ORDERED: SODIUM CHLORIDE 0.9% INJ SCH (12:15)
--- NOTE | 2019-05-04 12:41 | PROGRESS NOTE ---
DATE: 05/04/2019 SUBJECTIVE: This morning, Mr. Travis continues to be hurting. He is having multiple issues with the nurses because he wants Dilaudid, and his pain medication now is morphine. Mr. Travis is being admitted for presumed acute cholecystitis. Surgery has been notified. OBJECTIVE: Vital Signs: Blood pressure is 136/91, pulse of 77, respirations 18, temperature is 98 degrees, the patient is saturating 100% on room air. General: Mr. Travis is a 53-year-old gentleman. He is in bed. Does not seem to be in any cardiopulmonary distress. HEENT: Mucosa is pink and moist. Anicteric. Acyanotic. Neck: Supple. Chest: Good air entry bilaterally. No crepitations. No rhonchi. Cardiovascular: Regular rate and rhythm. GI: Abdomen is soft. There is tenderness in the right upper quadrant with regional guarding and rebound tenderness. Bowel sounds are present. Extremities: No pedal edema. MINT WAFER DEPOSITOR: The patient is awake, alert, and oriented. IMAGING AND LABORATORY DATA: Laboratory data has been reviewed. There is a mild microcytic anemia. There is also normal chemistry this morning. The patient's CT scan, which was done early on this morning, did show pericholecystic edema suggesting possible acute cholecystitis. There were some multiple cysts in the kidney. Ultrasound of the abdomen shows moderate gallbladder wall thickening of uncertain etiology. No distention of gallstones. Consider further. There is a mild splenomegaly. ASSESSMENT: 1. Right upper quadrant pain associated with imaging studies consistent with acute cholecystitis. The patient is currently on fluids, antibiotics, pain management has been optimized, and Surgery has been consulted. We are pending recommendations from them. We will switch all his medications to intravenous, and he is currently nothing by mouth pending Surgery further recommendations. 2. Recently diagnosed left lower extremity deep vein thrombosis with a lot of pulmonary emboli. The patient was, at home, on Eliquis. This has been withheld because of possible surgery. Will resume anticoagulation 24 hours after hemostasis has been achieved with surgery. 3. History of chronic obstructive pulmonary disease, currently not in exacerbation. 4. Ongoing tobacco use and abuse prior to hospitalization. 5. Recent gastric sleeve surgery. 6. Steatorrhea per history. cc: Cameron Griggs MD
[2019-05-04] MEDS ORDERED: LEVAQUIN 500 MG/D5W 500 MG/100 ML IVPB IV SCH (13:00)
[2019-05-04 13:06] LABS: INR 1.02; PROTIME 13.5 Seconds (11.0-16.0)
[2019-05-04] MEDS ORDERED: NICODERM PATCH TD PRN (15:14)
--- NOTE | 2019-05-04 20:25 | CONSULTATION ---
DATE OF CONSULTATION: 05/04/2019 Mr. Casey Travis is a 53-year-old white male who in 2018 underwent a gastric sleeve by Dr. Dwight Butler. Over the summer he has developed explosive diarrhea and cramping. He says it has gotten more severe over the last 2 months. His lower abdominal pain became severe enough to present to the hospital on 05/04/2019. He has recently been evaluated by Dr. Jigar Brandt as an outpatient, underwent colonoscopy and was told that he had an infection of his colon. He has been placed on antibiotics for a skin infection several months ago. He has had an abdominal and pelvic CT scan as part of his evaluation and it was reported that he had some fluid around his gallbladder. An abdominal ultrasound showed no gallstones, no biliary dilatation and moderate gallbladder wall thickening of uncertain etiology. We were asked to see him because of his abdominal pain and his x-ray findings. PAST MEDICAL HISTORY: Bipolar disorder, he has had a fracture of his right upper extremity, he has had a fracture of his right ankle, he has had left knee surgery. He has lost 160 pounds since his gastric sleeve in 2018. He has had several months history of 6 to 7 loose stools a day with abdominal cramping. He has had deep venous thrombosis left lower extremity, COPD, hypothyroidism, he has had an appendectomy. MEDICATIONS: Includes Eliquis, Synthroid, Celexa. ALLERGIES: Naproxen, Tylenol, Toradol, Demerol, oxycodone. SOCIAL HISTORY: His mother was at the bedside. He has a 20 pack-year history of smoking. He drinks alcohol socially. Uses marijuana occasionally. FAMILY HISTORY: Positive for coronary artery disease in his dad. REVIEW OF SYSTEMS: 14-point review of systems was performed. He has lost 160 pounds, he has had problems with diarrhea for several months. It appears that he has abdominal cramping. He has recently been seen by Dr. Brandt as an outpatient. EXAM: Mr. Casey Travis is a middle-aged white male in no acute distress. He does appear to be agitated. He has no jaundice. No oral lesions. No cervical or supraclavicular lymphadenopathy. His heart has regular rate. Lungs were clear to auscultation and percussion bilaterally. His abdomen was soft. He has well-healed trocar sites. There is no evidence of hernia. There was no significant abdominal tenderness. There was no palpable mass. No costovertebral tenderness. Rectal exam was not performed. He does have palpable peripheral pulses. No peripheral edema and neurologically he had no focal deficits. He is afebrile. Heart rate 57, blood pressure 138/83, O2 saturation 96%. He weighs 274 pounds, 6 feet. DATA: His liver function tests are all normal. His electrolytes are essentially normal. White blood cell count is normal. Hematocrit is 38%. An abdominal ultrasound shows no gallstones with some gallbladder wall thickening. A CT scan shows some fluid around the gallbladder but no obvious inflammation. Liver function tests are normal. IMPRESSION: Abdominal cramping and diarrhea, as much as 6-7 bowel movements a day with recent evaluation per colonoscopy by Dr. Brandt. PLAN: I do not feel that the symptoms are related to his gallbladder. His symptoms are abdominal cramping and diarrhea. He is being treated with IV antibiotics and fluids at this time. I will allow him to begin on clear liquids and further evaluation per Gastroenterology for results of colonoscopy and how they were treating him. cc: Joana Ruff MD
[2019-05-04] MEDS ORDERED: CELEXA PO SCH (21:00)
[2019-05-05] MEDS: FLAGYL 500 MG/NS 500 MG/100 ML IVPB IV SCH ×3 (01:28→07:53)
[2019-05-05] MEDS: MORPHINE IV PRN ×3 (01:44→09:47)
[2019-05-05] MEDS ORDERED: SODIUM CHLORIDE 0.9% INJ PRN (05:00)
[2019-05-05 05:38] LABS: BASO# 0.03 X1000 (0.0-0.2); BASO% 0.4 % (0.0-0.8); EOS# 0.29 X1000 (0.0-0.7); EOS% 4.3 % (0.0-10.0); HEMATOCRIT 37.9 % (42.0-52.0); HEMOGLOBIN 12.1 g/dL (14.0-18.0); LYMPH# 2.63 X1000 (1.2-3.4); LYMPH% 38.7 % (20.5-51.1); MCH 33.1 PG (27-31); MCHC 31.9 g/dL (33-37); MCV 103.6 FL (81-99); MONO# 0.33 X1000 (0.11-0.59); MONO% 4.9 % (1.7-9.3); MPV 10.3 FL (7.4-10.4); NEUT# 3.52 X1000 (1.4-6.5); NEUT% 51.7 % (42.2-75.2); PLT 235 X1000 (130-400); RBC 3.66 XMIL (4.7-6.1); RDW 15.3 % (11.5-14.5)
[2019-05-05 06:01] LABS: AGAP 5; BUN 9 mg/dL (8-22); CALCIUM 8.7 mg/dL (8.8-10.2); CHLORIDE 108 mmol/L (98-107); COSMO 278; CREATININE 0.8 mg/dL (0.7-1.2); ESTIMATED GFR > 60; GLUCOSE 104 mg/dL (70-104); POTASSIUM 3.8 mmol/L (3.5-5.1); SODIUM 140 mmol/L (136-145); TCO2 27 mmol/L (25-35)
[2019-05-05] MEDS ORDERED: SYNTHROID IV SCH (07:00)
[2019-05-05 08:22] VITALS: BP 141/78
[2019-05-05] MEDS: NS 1,000 ML IV SCH (09:47)
[2019-05-05] MEDS ORDERED: NEURONTIN PO PRN (10:52)
[2019-05-05] MEDS ORDERED: TOPAMAX PO SCH (11:00)
[2019-05-05] MEDS ORDERED: ATIVAN PO ONE (11:18)
[2019-05-05] MEDS ORDERED: DESYREL PO SCH (21:00)
--- NOTE | 2019-05-06 11:55 | DISCHARGE SUMMARY ---
ADMISSION DATE: 05/04/2019 DISCHARGE DATE: 05/05/2019 DISPOSITION: Home. FOLLOW-UP: 1. Dr. Travis. 2. Dr. Ruff. 3. Dr. Brandt. CONSULTATION DURING ADMISSION: Surgery was consulted. Patient was seen by Dr. Ruff. INVASIVE PROCEDURES DONE DURING ADMISSION: None. IMAGING STUDIES OF SIGNIFICANCE: 1. An abdomen and pelvic CT scan was done on 05/04/2019 with IV contrast, which showed pericholecystic edema suggesting possible acute cholecystitis. Thickened colonic wall, and multiple renal cysts with the upper lobe. 2. An ultrasound of the abdomen done on 05/04/2019 shows a moderate gallbladder wall thickening of uncertain etiology. No distention or gallstone. Mild splenomegaly. ADMISSION DIAGNOSES: 1. Abdominal pain. 2. Possible colitis. 3. Possible cholecystitis. 4. History of deep venous thrombosis. 5. Ongoing tobacco use. 6. Chronic obstructive pulmonary disease. 7. Diabetes. DIAGNOSES AT TIME OF DISCHARGE: 1. Right upper quadrant pain associated with imaging studies concerning for acalculous acute cholecystitis. The patient was evaluated by surgery. 2. Recently diagnosed left lower extremity Deep venous thrombosis with pulmonary embolus. The patient is on Eliquis. 3. History of chronic obstructive pulmonary disease not in exacerbation. 4. Recent gastric sleeve surgery. 5. Steatorrhea per history. 6. Ongoing tobacco use and abuse prior to hospitalization. 7. Microcytic anemia. 8. Bipolar disorder. 9. Chronic pain syndrome. DISCHARGE MEDICATIONS: 1. Gabapentin 300 mg p.o. p.r.n. 2. Omeprazole 40 mg p.o. daily. 3. Topiramate 200 mg p.o. daily. 4. Trazodone 50 mg p.o. at bedtime. 5. Levothyroxine 100 mcg p.o. daily. 6. Citalopram 40 mg p.o. at bedtime. 7. Oxcarbazepine 600 b.i.d. 8. Tamsulosin 0.4 mg p.o. at bedtime. 9. Iron 1 tablet p.o. daily. 10. Budesonide. 11. Nicotine patch. 12. Eliquis 5 mg p.o. daily. 13. Levofloxacin 500 p.o. daily. 14. Metronidazole 350 p.o. q. 3 times per day. 15. Oxycodone 10 mg p.o. q.6h p.r.n. PRESENTING COMPLAINT: Abdominal pain. HISTORY OF PRESENTING COMPLAINT: Mr. Travis is a 53-year-old gentleman with DVT and PE, COPD, hypothyroidism, also bipolar disorder, who came in because of right upper quadrant pain. On presentation, he was evaluated including a CAT scan which suggested the possibility of cholecystitis and colitis. Mr. Travis was admitted for further medical management. HOSPITAL COURSE: Mr. Travis was admitted to the medical floor and was adequately fluid resuscitated, and started on IV antibiotics. He did have a lot of complaints with his pain management. He was quite upset that he was not being given Dilaudid since he has been on pain management for a very long time. In any case, he got evaluated by Surgery (Dr. Ruff) who thought that the pain was probably not related to his gallbladder, and that the patient did not need any surgery now. Today, Mr. Travis almost went home AMA because he said his bipolar medications were not being given to him, and that the light in the room was just disturbing him, and that every now and then people get into his room and that just makes his bipolar worse. He thinks his abdominal pain is significantly improved, and that he can be discharged. He only requests that he gets pain medication before he leaves. Mr. Travis's current vitals blood pressure is 141/79, pulse is 48, respirations 14, and temperature is 98 degrees. He was saturating 100% on room air. His physical exam, abdomen was soft, minimally tender, but for the most part unremarkable. We think Mr. Travis is fairly stable to be discharged. He is going to be on antibiotics for 2 reasons, one for the presumed acalculous cholecystitis and also for possible colitis. He is going to follow up with Dr. Ruff, and he also follows up with Dr. Brandt, the GI physician. He has been advised to be compliant with his medications. He has been given a prescription for pain management until he gets to see his primary care doctor. All the discharge instructions have been discussed with him, and he voiced understanding. TIME SPENT FOR DISCHARGE: 33 minutes. cc: Cameron Griggs MD
== END 2019-05-05 12:35 | disposition home or self-care (01) ==
LOC: ED 00:38 → 1N 00:38 → SUATTDRO 06:45
PROVIDERS: ATTEND Internal Medicine